=== PATIENT | male | born 1960 | race Caucasian/White ===

== ENCOUNTER 2017-03-29 09:45 | Emergency (ER) | payer OTHER ==
[~2017-03-29] VITALS: Ht 175.3 cm; Wt 86.4 kg
[2017-03-29] MEDS ORDERED: CEPHALEXIN500 M1 PO (09:53)
[2017-03-29] MEDS ORDERED: BACTRIM DS 8001 TAB PO (10:20)
[2017-03-29 10:32] VITALS: BP 142/77; PULSE 86; TEMP 98.3
== END 2017-03-29 10:32 | disposition home or self-care (01) ==
LOC: COL.ER 09:45
DX: L03.011 Cellulitis of right finger (principal); M54.9 Dorsalgia, unspecified; R47.02 Dysphasia